=== PATIENT | female | born 1935 | race American Indian/Alaskan Native ===

== ENCOUNTER → 2018-07-06 | Outpatient (CLI) | payer MEDICARE, OTHER ==
[~2018-07-06] MED LIST: Artificial Tea1 EACH BOTHEYES; CALC.25 PO; CARV3.125 PO; CIPR500 PO; FURO40 PO; GLIM4 PO; INSULANPEN; Januvia50 MG PO; LISI20 PO; LOSA25 PO; MECL12.5 PO; METF500 PO; METO2.5 PO; NIFE90ER PO; Oxybutynin Chlor5 M1 PO; SITA100T2 PO; VITAMIN D32000 UNIT PO
== END ==
LOC: LAB SHORT 18:23 → LAB 18:23
DX: R35.1 Nocturia (principal)
CPT/HCPCS: 87077; 87086; 87186

== ENCOUNTER → 2019-04-12 | Outpatient (CLI) | payer MEDICARE, OTHER ==
[2019-04-13 14:01] LABS: C DIFFICILE BY DNA AMP Positive (Negative)
== END | disposition home or self-care (01) ==
LOC: LAB SHORT 09:58 → LAB 09:58
PROVIDERS: Internal Medicine Nephrology
DX: N18.4 Chronic kidney disease, stage 4 (severe) (principal); D63.1 Anemia in chronic kidney disease; E55.9 Vitamin D deficiency, unspecified; E78.00 Pure hypercholesterolemia, unspecified; R76.9 Abnormal immunological finding in serum, unspecified; R94.5 Abnormal results of liver function studies; R94.6 Abnormal results of thyroid function studies
CPT/HCPCS: 87324; 87493

== ENCOUNTER → 2020-02-20 | Outpatient (CLI) | payer MEDICARE, OTHER ==
[2020-02-20 11:54] LABS: Bun/Creatinine Ratio 33.6 (12.0-20.0); Calcium, Blood 9.7 mg/dL (8.5-10.1); Creatinine, Blood 3.75 mg/dL (0.40-1.00); Potassium, Blood 3.5 mmol/L (3.5-5.5)
[2020-02-20 11:56] LABS: Uric Acid, Blood 14.6 mg/dL (2.6-6.0)
== END | disposition home or self-care (01) ==
LOC: LAB SHORT 10:03 → LAB 10:03
PROVIDERS: Physician Assistant
DX: N18.3 Chronic kidney disease, stage 3 (moderate) (principal); D63.1 Anemia in chronic kidney disease
CPT/HCPCS: 80048; 84550

== ENCOUNTER → 2020-02-26 | Outpatient (CLI) | payer MEDICARE, OTHER ==
[2020-02-26 10:58] LABS: BASOPHILS ABSOLUTE AUTO 0.02 K/mm3 (0.00-0.23); BASOPHILS PERCENT AUTO 0 % (0-2); EOSINOPHILS ABSOLUTE AUTO 0.01 K/mm3 (0.00-0.68); EOSINOPHILS PERCENT AUTO 0 % (0-6); Hematocrit 42.5 % (33.0-51.0); IMMATURE GRAN ABSOLUTE AUTO 0.05 K/mm3 (0.00-0.10); IMMATURE GRAN PERCENT AUTO 0 % (0-1); LYMPHOCYTES PERCENT AUTO 16 % (21-46); MONOCYTES ABSOLUTE AUTO 1.02 K/mm3 (0.16-1.47); MONOCYTES PERCENT AUTO 9 % (4-13); Mean Corpuscular HGB 27.8 pg (26.0-34.0); Mean Corpuscular HGB Conc 32.9 g/dL (31.5-36.5); Mean Corpuscular Volume 85 fL (80-100); NEUTROPHILS PERCENT AUTO 75 % (41-73); Platelet Count 295 K/mm3 (150-400); RDW Coefficient Variation 13.3 % (11.7-14.2); RDW Standard Deviation 41.2 fL (35.1-46.3); Red Blood Cell Count 5.03 M/mm3 (3.80-5.20)
[2020-02-26 11:16] LABS: Alanine Aminotransfer (ALT/SGP 36 U/L (12-78); Albumin, Blood 3.7 g/dL (3.4-5.0); Albumin/Globulin Ratio 0.7 (0.8-1.8); Alk Phos 44 U/L (50-136); Anion Gap 6 mmol/L (6-16); Aspartate Aminotrans (AST/SGOT 23 U/L (12-37); Bilirubin, Direct 0.2 mg/dL (0.0-0.3); Bilirubin, Indirect 0.4 mg/dL (0.1-0.7); Bilirubin, Total 0.6 mg/dL (0.1-1.0); CO2, Blood 39 mmol/L (21-32); Calcium, Blood 10.1 mg/dL (8.5-10.1); Chloride, Blood 91 mmol/L (98-108); Creatinine, Blood 3.47 mg/dL (0.40-1.00); Globulin, Blood 5.1 g/dL (2.2-4.0); Glomerular Filtration Rate 13 (60-); Glucose, Blood 138 mg/dL (70-99); Phosphorus, Blood 5.1 mg/dL (2.5-4.9); Potassium, Blood 3.1 mmol/L (3.5-5.5); Sodium, Blood 136 mmol/L (136-145); Total Protein, Blood 8.8 g/dL (6.4-8.2); Uric Acid, Blood 17.7 mg/dL (2.6-6.0)
[2020-02-26 11:23] LABS: Blood Urea Nitrogen 155 mg/dL (8-24); Bun/Creatinine Ratio 44.7 (12.0-20.0)
== END | disposition home or self-care (01) ==
LOC: LAB SHORT 10:47 → LAB 10:47
PROVIDERS: Internal Medicine Nephrology
DX: Z79.01 Long term (current) use of anticoagulants (principal); Z51.81 Encounter for therapeutic drug level monitoring; N18.5 Chronic kidney disease, stage 5; N25.81 Secondary hyperparathyroidism of renal origin; E78.00 Pure hypercholesterolemia, unspecified; R76.9 Abnormal immunological finding in serum, unspecified; R94.5 Abnormal results of liver function studies; R94.6 Abnormal results of thyroid function studies
CPT/HCPCS: 80053; 82248; 84100; 84550; 85025

== ENCOUNTER → 2020-03-03 | Outpatient (CLI) | payer MEDICARE, OTHER ==
[~2020-03-03] MED LIST changes: +ALLO100 PO; +BASAGLAR K100 UNIT/1 SC; +FURO80 PO; -INSULANPEN; +INSULANPEN SC; +METO5 PO; +POTA10T PO; +Polyvinyl Alcoh15 ML BOTHEYES; +TRAM50 PO
[2020-03-03 19:47] LABS: BASOPHILS ABSOLUTE AUTO 0.02 K/mm3 (0.00-0.23); BASOPHILS PERCENT AUTO 0 % (0-2); EOSINOPHILS PERCENT AUTO 1 % (0-6); Hematocrit 45.8 % (33.0-51.0); Hemoglobin 14.8 g/dL (11.5-16.0); IMMATURE GRAN ABSOLUTE AUTO 0.05 K/mm3 (0.00-0.10); IMMATURE GRAN PERCENT AUTO 0 % (0-1); LYMPHOCYTES ABSOLUTE AUTO 3.01 K/mm3 (0.84-5.20); LYMPHOCYTES PERCENT AUTO 27 % (21-46); MONOCYTES ABSOLUTE AUTO 1.32 K/mm3 (0.16-1.47); MONOCYTES PERCENT AUTO 12 % (4-13); Mean Corpuscular HGB 27.3 pg (26.0-34.0); Mean Corpuscular HGB Conc 32.3 g/dL (31.5-36.5); Mean Corpuscular Volume 85 fL (80-100); Mean Platelet Volume 11.8 fL (9.1-12.4); NEUTROPHILS ABSOLUTE AUTO 6.83 K/mm3 (1.96-9.15); NEUTROPHILS PERCENT AUTO 60 % (41-73); Platelet Count 245 K/mm3 (150-400); RDW Coefficient Variation 13.6 % (11.7-14.2); RDW Standard Deviation 41.8 fL (35.1-46.3); Red Blood Cell Count 5.42 M/mm3 (3.80-5.20); White Blood Cell Count 11.33 K/mm3 (4.00-11.30)
[2020-03-03 20:19] LABS: Albumin, Blood 3.9 g/dL (3.4-5.0); Anion Gap 12 mmol/L (6-16); CO2, Blood 34 mmol/L (21-32); Calcium, Blood 10.7 mg/dL (8.5-10.1); Chloride, Blood 86 mmol/L (98-108); Creatinine, Blood 3.91 mg/dL (0.40-1.00); Glomerular Filtration Rate 12 (60-); Glucose, Blood 56 mg/dL (70-99); Phosphorus, Blood 4.2 mg/dL (2.5-4.9); Sodium, Blood 132 mmol/L (136-145)
[2020-03-03 20:27] LABS: Blood Urea Nitrogen 160 mg/dL (8-24); Bun/Creatinine Ratio 40.9 (12.0-20.0)
== END ==
LOC: LAB 16:10 → LAB SHORT 16:10
PROVIDERS: Internal Medicine Nephrology
DX: E11.22 Type 2 diabetes mellitus with diabetic chronic kidney disease (principal); N18.5 Chronic kidney disease, stage 5; D72.829 Elevated white blood cell count, unspecified
CPT/HCPCS: 80069; 83735; 85025

== ENCOUNTER → 2020-03-05 | Outpatient (CLI) | payer MEDICARE, OTHER ==
[2020-03-05 15:59] LABS: BASOPHILS ABSOLUTE AUTO 0.03 K/mm3 (0.00-0.23); BASOPHILS PERCENT AUTO 0 % (0-2); EOSINOPHILS ABSOLUTE AUTO 0.11 K/mm3 (0.00-0.68); EOSINOPHILS PERCENT AUTO 1 % (0-6); Hematocrit 43.7 % (33.0-51.0); Hemoglobin 14.2 g/dL (11.5-16.0); IMMATURE GRAN ABSOLUTE AUTO 0.05 K/mm3 (0.00-0.10); IMMATURE GRAN PERCENT AUTO 1 % (0-1); LYMPHOCYTES ABSOLUTE AUTO 2.95 K/mm3 (0.84-5.20); LYMPHOCYTES PERCENT AUTO 29 % (21-46); MONOCYTES ABSOLUTE AUTO 1.29 K/mm3 (0.16-1.47); MONOCYTES PERCENT AUTO 13 % (4-13); Mean Corpuscular HGB 27.6 pg (26.0-34.0); Mean Corpuscular HGB Conc 32.5 g/dL (31.5-36.5); Mean Corpuscular Volume 85 fL (80-100); Mean Platelet Volume 11.7 fL (9.1-12.4); NEUTROPHILS PERCENT AUTO 57 % (41-73); Platelet Count 209 K/mm3 (150-400); RDW Coefficient Variation 13.6 % (11.7-14.2); RDW Standard Deviation 41.8 fL (35.1-46.3); Red Blood Cell Count 5.14 M/mm3 (3.80-5.20); White Blood Cell Count 10.23 K/mm3 (4.00-11.30)
[2020-03-05 16:15] LABS: International Normalized Ratio 1.07; Prothrombin Time Results 11.4 Sec (9.7-11.5)
[2020-03-05 16:23] LABS: Bun/Creatinine Ratio 39.8 (12.0-20.0); Calcium, Blood 10.6 mg/dL (8.5-10.1); Creatinine, Blood 4.05 mg/dL (0.40-1.00); Potassium, Blood 3.5 mmol/L (3.5-5.5)
== END | disposition home or self-care (01) ==
LOC: LAB SHORT 14:56 → LAB 14:56
PROVIDERS: Radiology Diagnostic Radiology
DX: N18.6 End stage renal disease (principal)
CPT/HCPCS: 80048; 85025; 85610

== ENCOUNTER 2020-03-18 14:38 | Emergency (ER) | payer MEDICARE, OTHER ==
[~2020-03-18] VITALS: Ht 170.2 cm; Wt 81.7 kg
[~2020-03-18 14:38] MED LIST changes: +ABAT250V; +ACET500 PO; +MEGESTROL400 MG/10 PO; +MIRALAX17 GM PO; +Senna S Tablet1 EACH PO
[2020-03-18 15:37] LABS: Albumin, Blood 3.1 g/dL (3.4-5.0); Albumin/Globulin Ratio 0.7 (0.8-1.8); Bilirubin, Total 0.9 mg/dL (0.1-1.0); Bun/Creatinine Ratio 17.7 (12.0-20.0); Calcium, Blood 9.7 mg/dL (8.5-10.1); Creatinine, Blood 4.13 mg/dL (0.40-1.00); Globulin, Blood 4.3 g/dL (2.2-4.0); Potassium, Blood 3.9 mmol/L (3.5-5.5); Total Protein, Blood 7.4 g/dL (6.4-8.2)
[2020-03-18 17:10] LABS: BASOPHILS ABSOLUTE AUTO 0.02 K/mm3 (0.00-0.23); BASOPHILS PERCENT AUTO 0 % (0-2); EOSINOPHILS ABSOLUTE AUTO 0.15 K/mm3 (0.00-0.68); EOSINOPHILS PERCENT AUTO 2 % (0-6); Hemoglobin 13.3 g/dL (11.5-16.0); IMMATURE GRAN ABSOLUTE AUTO 0.04 K/mm3 (0.00-0.10); IMMATURE GRAN PERCENT AUTO 1 % (0-1); LYMPHOCYTES ABSOLUTE AUTO 2.37 K/mm3 (0.84-5.20); LYMPHOCYTES PERCENT AUTO 33 % (21-46); MONOCYTES ABSOLUTE AUTO 1.48 K/mm3 (0.16-1.47); MONOCYTES PERCENT AUTO 20 % (4-13); Mean Corpuscular HGB Conc 32.4 g/dL (31.5-36.5); Mean Corpuscular Volume 86 fL (80-100); Mean Platelet Volume 10.7 fL (9.1-12.4); NEUTROPHILS ABSOLUTE AUTO 3.18 K/mm3 (1.96-9.15); NEUTROPHILS PERCENT AUTO 44 % (41-73); Platelet Count 194 K/mm3 (150-400); RDW Coefficient Variation 14.6 % (11.7-14.2); RDW Standard Deviation 45.2 fL (35.1-46.3); Red Blood Cell Count 4.75 M/mm3 (3.80-5.20); White Blood Cell Count 7.24 K/mm3 (4.00-11.30)
== END 2020-03-18 18:38 | disposition home or self-care (01) ==
LOC: ER 14:38
PROVIDERS: Physician Assistant
DX: E11.649 Type 2 diabetes mellitus with hypoglycemia without coma (principal); R41.82 Altered mental status, unspecified; Z79.4 Long term (current) use of insulin; Z79.899 Other long term (current) drug therapy; Z87.891 Personal history of nicotine dependence
CPT/HCPCS: 80053; 82947; 85025; 99285

== ENCOUNTER 2020-03-22 13:14 | Inpatient (IN) | payer MEDICARE, OTHER ==
[~2020-03-22] VITALS: Ht 172.7 cm; Wt 88.8 kg
[2020-03-22] MEDS ORDERED: GABA100 PO (13:23)
[2020-03-22 13:38] LABS: Source, Urine Catheter
[2020-03-22 13:41] LABS: Blood, Urine 5+ (Neg); Glucose Qualitative, Urine Neg (Neg); Ketones, Urine 2+ (Neg); Leukocyte Esterase, Urine 3+ (Neg); Nitrite, Urine Neg (Neg); Protein, Urine 3+ (Neg); Urobilinogen, Urine 2+ (Normal)
[2020-03-22 13:44] LABS: Bilirubin, Urine 1+ (Neg)
[2020-03-22 13:45] LABS: BASOPHILS ABSOLUTE AUTO 0.03 K/mm3 (0.00-0.23); BASOPHILS PERCENT AUTO 0 % (0-2); EOSINOPHILS ABSOLUTE AUTO 0.11 K/mm3 (0.00-0.68); EOSINOPHILS PERCENT AUTO 1 % (0-6); Hematocrit 43.8 % (33.0-51.0); Hemoglobin 14.2 g/dL (11.5-16.0); IMMATURE GRAN ABSOLUTE AUTO 0.05 K/mm3 (0.00-0.10); IMMATURE GRAN PERCENT AUTO 1 % (0-1); LYMPHOCYTES ABSOLUTE AUTO 2.85 K/mm3 (0.84-5.20); LYMPHOCYTES PERCENT AUTO 37 % (21-46); MONOCYTES ABSOLUTE AUTO 1.59 K/mm3 (0.16-1.47); MONOCYTES PERCENT AUTO 21 % (4-13); Mean Corpuscular HGB 28.4 pg (26.0-34.0); Mean Corpuscular HGB Conc 32.4 g/dL (31.5-36.5); Mean Corpuscular Volume 88 fL (80-100); Mean Platelet Volume 10.1 fL (9.1-12.4); NEUTROPHILS PERCENT AUTO 40 % (41-73); Platelet Count 216 K/mm3 (150-400); RDW Coefficient Variation 15.3 % (11.7-14.2); RDW Standard Deviation 47.5 fL (35.1-46.3); White Blood Cell Count 7.73 K/mm3 (4.00-11.30)
[2020-03-22 13:55] LABS: Appearance, Urine Cloudy (Clear); Color, Urine Amber (P-Yellow)
[2020-03-22 13:57] LABS: Red Blood Cells, Urine 50-100 /hpf (0-2); White Blood Cells, Urine 50-100 /hpf (0-5)
[2020-03-22 13:58] LABS: Amorphous Heavy (0-Heavy); Bacteria Many /hpf; Squamous Epithelial Cells Mod /hpf (Few)
[2020-03-22 14:02] LABS: Albumin, Blood 3.4 g/dL (3.4-5.0); Albumin/Globulin Ratio 0.7 (0.8-1.8); Bilirubin, Total 0.7 mg/dL (0.1-1.0); Bun/Creatinine Ratio 9.3 (12.0-20.0); Creatinine, Blood 3.76 mg/dL (0.40-1.00); Globulin, Blood 4.8 g/dL (2.2-4.0); Potassium, Blood 4.3 mmol/L (3.5-5.5); Total Protein, Blood 8.2 g/dL (6.4-8.2)
--- NOTE | 2020-03-22 18:15 | NUR ---
PT ARRIVED TO PCU 3 FROM ER. JENSEN. PT LYING IN BED W/ HER EYES CLOSED. A&Ox3. UNAWARE OF YEAR OR DATE. SLOW TO RESPOND BUT ANSWERS MAJORITY OF QUESTIONS WITH AN APPROPRIATE RESPONSE. LUNG SOUNDS DIMINISHED IN BASES, CLEAR IN ALL OTHER PHILIPPE. DENIES SOB. HEART IS IN SINUS RHYTHMN AT A RATE OF 63. MINOR EDEMA NOTED IN LOWER EXTREMETIES. PT CANNOT RECALL LAST BM. DENIES ABD PN. BOWELS ACTIVE IN ALL FOUR QUADRANTS. PT REPORTS UNRINARY INCONTINENCE. PT HAS RED AREA ON BUTTOCK AND INNER L ANKLE. OINTMENT PLACED ON BUTTOCK. PT CURRENTLY SITTING UP IN BED EATING DINNER WATCHING TV. BED IN LOWEST POSITION, RAILS UP, AND CALL LIGHT W/IN REACH.
--- NOTE | 2020-03-22 18:20 | NUR ---
POLST: Call placed to [facility]. Pt does have an updated POLST form signed during her last admission to the hospital. Pt is DNR. Copy of POLST form placed in chart and sent to medical records to scan into [employer].
--- NOTE | 2020-03-22 22:43 | NUR ---
CARE ASSUMED REPORT RECEIVED, CARE ASSUMED AT 1900 FROM BRYSON PHAN. PT ASLEEP IN BED, AROUSES EASILY WITH VERBAL STIMULATION. ORIENTED TO SELF ONLY. FORGETFUL. VITALS STABLE. ABLE TO TAKE ORAL MEDICATIONS WITHOUT DIFFICULTY. DENIES PAIN/DISCOMFORT. SEE ASSESSMENT. BED ALARM IN PLACE FOR SAFETY. CALL LIGHT IN REACH.
[2020-03-23 03:51] LABS: BASOPHILS ABSOLUTE AUTO 0.01 K/mm3 (0.00-0.23); BASOPHILS PERCENT AUTO 0 % (0-2); EOSINOPHILS ABSOLUTE AUTO 0.15 K/mm3 (0.00-0.68); EOSINOPHILS PERCENT AUTO 2 % (0-6); Hematocrit 40.5 % (33.0-51.0); Hemoglobin 12.6 g/dL (11.5-16.0); IMMATURE GRAN ABSOLUTE AUTO 0.04 K/mm3 (0.00-0.10); IMMATURE GRAN PERCENT AUTO 1 % (0-1); LYMPHOCYTES ABSOLUTE AUTO 2.52 K/mm3 (0.84-5.20); LYMPHOCYTES PERCENT AUTO 35 % (21-46); MONOCYTES PERCENT AUTO 22 % (4-13); Mean Corpuscular HGB 27.2 pg (26.0-34.0); Mean Corpuscular HGB Conc 31.1 g/dL (31.5-36.5); Mean Corpuscular Volume 87 fL (80-100); Mean Platelet Volume 9.9 fL (9.1-12.4); NEUTROPHILS ABSOLUTE AUTO 2.86 K/mm3 (1.96-9.15); NEUTROPHILS PERCENT AUTO 40 % (41-73); Platelet Count 197 K/mm3 (150-400); RDW Coefficient Variation 15.2 % (11.7-14.2); RDW Standard Deviation 47.7 fL (35.1-46.3); Red Blood Cell Count 4.64 M/mm3 (3.80-5.20); White Blood Cell Count 7.18 K/mm3 (4.00-11.30)
[2020-03-23 04:13] LABS: Albumin, Blood 2.8 g/dL (3.4-5.0); Albumin/Globulin Ratio 0.7 (0.8-1.8); Bilirubin, Total 0.6 mg/dL (0.1-1.0); Bun/Creatinine Ratio 10.4 (12.0-20.0); Calcium, Blood 9.6 mg/dL (8.5-10.1); Creatinine, Blood 3.75 mg/dL (0.40-1.00); Magnesium, Blood 2.3 mg/dL (1.6-2.4); Phosphorus, Blood 3.5 mg/dL (2.5-4.9); Potassium, Blood 3.7 mmol/L (3.5-5.5); Total Protein, Blood 6.8 g/dL (6.4-8.2)
--- NOTE | 2020-03-23 06:30 | NUR ---
SUMMARY PT HAS CONTINUED TO BE ORIENTED TO SELF ONLY. PT HAS SLEPT WELL THROUGHOUT NIGHT, BUT HAS BEEN INCREASINGLY EASIER TO WAKE UP. PT MORE TALKATIVE NIGHT PROGRESSES. ABLE TO EXPRESS SIMPLE NEEDS SUCH "I'M COLD." PT DENIES PAIN THROUGHOUT SHIFT. VITALS STABLE. INCONTINENT OF BOWEL AND URINE, ATTENDS IN PLACE. BLADDER SCAN PER DR. RAMOS, 150 IN BLADDER. PT ABLE TO ASSIST WITH TURNS BUT STILL REQUIRES TWO PERSON ASSIST. OTHERWISE, NO ACUTE CHANGES.
--- NOTE | 2020-03-23 07:40 | NUR ---
pt sleeping wakes breifly but falls back to sleep
--- NOTE | 2020-03-23 08:30 | NUR ---
PT EATING BREAKFAST
--- NOTE | 2020-03-23 09:01 | NUR ---
PT TRANSPORTED VIA BED TO DIALYSIS
--- NOTE | 2020-03-23 11:23 | NUR ---
PT BACK FROM DIALYSIS HER [facility] CALLED EARLIER REQ SHE GO TO SNF PER DR RACHEL FLORES DUE TO FREQ ADMISSION TO ER WITH HER NEW DIALYSIS DX PT HAS NO PREF
--- NOTE | 2020-03-23 12:05 | NUR ---
DR RAMOS BY TO SEE PT PT STATED HER FEET WERE HURTING REMOVED HEEL PROTECTORS AND GAVE HER PO TYLENOL AND FLOATED HER HEELS INSTEAD AWAITING A BED ON MED FLOOR
--- NOTE | 2020-03-23 12:51 | NUR ---
PT ARRIVED TO HER ROOM FROM PCU. SHE IS RESTING IN BED WITH HER EYES CLOSED. SHE WAS ORIENTED TO HER ROOM AND STAFF AND SMILED HER RESPONSE. SHE HAS HER CALL LIGHT IN REACH AND BED ALARM ON FOR SAFETY.
--- NOTE | 2020-03-23 15:39 | NUR ---
SHIFT SUMMARY PT IS ALERT BUT NOT ORIENTED. WHEN ASKED WHEN HER BIRTHDAY IS SHE REPORTS THE WRONG MONTH. PT IS COMPLIANT WITH HER CARE AND TAKES HER MEDS ORDERED. SHE WAS ABLE TO WORK WITH THERPAY FOR A SHORT PERIOD OF TIME THIS AFTERNOON AND WENT BACK TO BED. SHE IS RESTING IN BED WITH HER CALL LIGHT IN REACH AND BED ALARM ON FOR SAFETY.
--- NOTE | 2020-03-24 04:42 | NUR ---
SHIFT SUMMARY NO ACUTE CHANGES TO REPORT THIS SHIFT. PT PLESANT AND COOPERATIVE AND MUCH MORE A/O THAN PREVIOUS SHIFTS. SHE IS A/O TO YEAR, PRESIDENT, FAMILY, AND SEEMS TO HAVE SOME AWARENESS THAT SHE IS IN THE HOSPITAL. SHE WAS NOT ABLE TO TELL ME THE MONTH. HOWEVER, PT IS EASY TO REDIRECT. SHE HAS NOT TRIED TO CLIMB OUT OF BED. SHE HAS DENIED NEEDS WHEN ASKED AND TOOK HER MEDICATIONS WITHOUT DIFFICULTY. VITALS STABLE. BED IN LOWEST POSITION, CALL LIGHT WITHIN REACH. WILL CONTINUE TO MONITOR AND REPORT TO ONCOMING RN.
[2020-03-24 04:53] LABS: Hematocrit 39.8 % (33.0-51.0); Hemoglobin 12.9 g/dL (11.5-16.0)
[2020-03-24 05:10] LABS: Anion Gap 8 mmol/L (6-16); Blood Urea Nitrogen 32 mg/dL (8-24); Bun/Creatinine Ratio 10.2 (12.0-20.0); CO2, Blood 29 mmol/L (21-32); Calcium, Blood 9.4 mg/dL (8.5-10.1); Chloride, Blood 96 mmol/L (98-108); Creatinine, Blood 3.14 mg/dL (0.40-1.00); Glomerular Filtration Rate 15 (60-); Glucose, Blood 140 mg/dL (70-99); Magnesium, Blood 2.2 mg/dL (1.6-2.4); Phosphorus, Blood 3.2 mg/dL (2.5-4.9); Sodium, Blood 133 mmol/L (136-145)
--- NOTE | 2020-03-24 06:16 | NUR ---
DR. RAMOS IN TO SEE PT THIS AM. NEW [place] ORDER NOTED.
--- NOTE | 2020-03-24 07:34 | NUR ---
ASSUMED CARE OF PT- BEDSIDE REPORT COMPLETED WITH NIGHT BRYSON KELLEY. PT ALERT AND ORIENTED X3 PER REPORT. PT ALEEPING AT THE TIME OF REPORT RESP E/U, NO S&S OF DISTRESS OR PAIN. ABX RUNNING AT CHANGE OF SHIFT OTHERWISE IV IS SL. PT 2PA WITH ALL TRANSFERS AWATITING PLACEMENT; IS ON DIALYSIS.
[2020-03-24] MEDS ORDERED: VISBIOME 112.51 EACH PO (11:47)
--- NOTE | 2020-03-24 16:06 | NUR ---
SHIFT SUMMARY- PT WAS GIVEN WRITTEN DISCHARGE INSTRUCTIONS. IV REMOVED PRIOR TO DISCHARGE. CALLED [facility] AND SPOKE TO MUNIRA THEY ARE AWARE OF THE PT DISCHARGE. PRINTED DC INSTRUCTIONS WERE GIVEN TO THE INSPECTOR AUTOMATIC TYPEWRITER TO GIVE TO THE LOGISTICS MANAGEMENT SPECIALIST AT [facility]. WOUND CARE PERFORMED PRIOR TO DISCHARGE, CLEANED AND DRIED AREA AND PLACED A MEPILEX OVER HER COCCYX. PT WAS A 2P MOD ASSIST TO THE .
== END 2020-03-24 14:42 | disposition home or self-care (01) | DRG 91 ==
LOC: ER 13:14 → PCU 13:15 → MEDS 13:15 → PCU 13:15 → MEDS 03-23 12:45 → ENPENDDIS 03-24 09:31 → MEDS 03-24 14:42
PROVIDERS: Emergency Medicine; Internal Medicine Nephrology; ADMIT Hospitalist
PROC: 5A1D70Z Performance of Urinary Filtration, Intermittent, Less than 6 Hours Per Day (ICD-10-PCS; principal; 2020-03-23)
DX: G92 Toxic encephalopathy (principal); N18.6 End stage renal disease; N39.0 Urinary tract infection, site not specified; N25.81 Secondary hyperparathyroidism of renal origin; E87.1 Hypo-osmolality and hyponatremia; Z99.2 Dependence on renal dialysis; E11.22 Type 2 diabetes mellitus with diabetic chronic kidney disease; I12.9 Hypertensive chronic kidney disease with stage 1 through stage 4 chronic kidney disease, or unspecified chronic kidney disease; Z87.891 Personal history of nicotine dependence; M19.90 Unspecified osteoarthritis, unspecified site; E88.09 Other disorders of plasma-protein metabolism, not elsewhere classified; T42.6X5A Adverse effect of other antiepileptic and sedative-hypnotic drugs, initial encounter; Y92.9 Unspecified place or not applicable
CPT/HCPCS: 36415; 71045; 80053; 80069; 81001; 82947; 83735; 84100; 85014; 85018; 85025; 87086; 93005; 93010; 97112; 97162; 99285-25; A9270; J0696; J1644; J7040; J7050; P9612

== ENCOUNTER → 2020-04-19 | Outpatient (CLI) | payer MEDICARE, OTHER ==
[~2020-04-19] MED LIST changes: +GABA100 PO; +VISBIOME 112.51 EACH PO
[2020-04-19 09:40] LABS: CHOL/HDL RATIO 5.7; Cholesterol 164 mg/dL (50-200); HDL Cholesterol 29 mg/dL (>39); LDL/HDL RATIO 3.7; Low Density Lipoprotein Chol 107 mg/dL (0-110); Triglycerides 138 mg/dL (30-160); Very Low Density Lipoprot Chol 27 mg/dL (6-32)
== END | disposition home or self-care (01) ==
LOC: LAB SHORT 08:32 → LAB 08:32
PROVIDERS: Physician Assistant
DX: Z13.6 Encounter for screening for cardiovascular disorders (principal); E11.9 Type 2 diabetes mellitus without complications
CPT/HCPCS: 80061; 82043

== ENCOUNTER → 2020-11-14 | Outpatient (CLI) | payer MEDICARE, OTHER ==
[~2020-11-14] MED LIST changes: +MIDO5 PO; +TRESIBA FL100 UNIT/2 SC; +Vitamin B-121000 MCG PO
[2020-11-14 17:22] LABS: Albumin, Blood 3.3 g/dL (3.4-5.0); Anion Gap 8 mmol/L (6-16); Blood Urea Nitrogen 57 mg/dL (8-24); Bun/Creatinine Ratio 27.9 (12.0-20.0); CO2, Blood 27 mmol/L (21-32); Calcium, Blood 9.5 mg/dL (8.5-10.1); Chloride, Blood 104 mmol/L (98-108); Creatinine, Blood 2.04 mg/dL (0.40-1.00); Glomerular Filtration Rate 25 (60-); Glucose, Blood 90 mg/dL (70-99); Phosphorus, Blood 3.8 mg/dL (2.5-4.9); Potassium, Blood 3.8 mmol/L (3.5-5.5); Sodium, Blood 139 mmol/L (136-145)
== END | disposition home or self-care (01) ==
LOC: LAB 16:00 → LAB SHORT 16:00
PROVIDERS: Internal Medicine Nephrology
DX: N18.6 End stage renal disease (principal)
CPT/HCPCS: 80069

== ENCOUNTER → 2020-11-21 | Outpatient (CLI) | payer MEDICARE, OTHER ==
[2020-11-21 12:51] LABS: Albumin/Globulin Ratio 0.8 (0.8-1.8); Bilirubin, Total 0.6 mg/dL (0.1-1.0); Bun/Creatinine Ratio 29.1 (12.0-20.0); Calcium, Blood 9.1 mg/dL (8.5-10.1); Creatinine, Blood 1.99 mg/dL (0.40-1.00); Globulin, Blood 3.6 g/dL (2.2-4.0); Phosphorus, Blood 3.5 mg/dL (2.5-4.9); Potassium, Blood 4.5 mmol/L (3.5-5.5); Total Protein, Blood 6.6 g/dL (6.4-8.2)
== END ==
LOC: LAB 11:18 → LAB SHORT 11:18
PROVIDERS: Internal Medicine Nephrology
DX: N18.6 End stage renal disease (principal)
CPT/HCPCS: 80053; 84100

== ENCOUNTER 2021-01-04 11:49 | Emergency (ER) | payer MEDICARE, OTHER ==
[~2021-01-04] VITALS: Ht 175.3 cm; Wt 90.7 kg
[~2021-01-04 11:49] MED LIST changes: -MIDO5 PO; -TRESIBA FL100 UNIT/2 SC; -Vitamin B-121000 MCG PO
[2021-01-04] MEDS ORDERED: ALLO100 PO (12:19)
[2021-01-04] MEDS ORDERED: FURO80 PO (12:19)
[2021-01-04] MEDS ORDERED: POTA10T PO (12:20)
[2021-01-04] MEDS ORDERED: METO5 PO (12:20)
[2021-01-04] MEDS ORDERED: MIDO5 PO (12:20)
[2021-01-04] MEDS ORDERED: TRESIBA FL100 UNIT/2 SC ×2 (12:21→12:22)
[2021-01-04] MEDS ORDERED: Vitamin B-121000 MCG PO (12:22)
[2021-01-04] MEDS ORDERED: TRAM50 PO (12:23)
== END 2021-01-04 14:18 | disposition home or self-care (01) ==
LOC: ER 11:49
DX: E11.649 Type 2 diabetes mellitus with hypoglycemia without coma (principal); I10 Essential (primary) hypertension; Z79.4 Long term (current) use of insulin; Z87.891 Personal history of nicotine dependence
CPT/HCPCS: 93005; 93010; 99285-25

== ENCOUNTER → 2021-08-06 | Outpatient (CLI) | payer MEDICARE, OTHER ==
[~2021-08-06] MED LIST changes: +MIDO5 PO; +TRESIBA FL100 UNIT/2 SC; +Vitamin B-121000 MCG PO
== END | disposition home or self-care (01) ==
LOC: LAB SHORT 10:15
DX: E11.649 Type 2 diabetes mellitus with hypoglycemia without coma (principal); E11.622 Type 2 diabetes mellitus with other skin ulcer; L97.329 Non-pressure chronic ulcer of left ankle with unspecified severity; L98.491 Non-pressure chronic ulcer of skin of other sites limited to breakdown of skin; S80.812S Abrasion, left lower leg, sequela; L08.9 Local infection of the skin and subcutaneous tissue, unspecified; Z79.899 Other long term (current) drug therapy
CPT/HCPCS: 87070; 87077; 87186; 87205

== ENCOUNTER 2021-09-22 12:41 | Day surgery (SDC) | payer MEDICARE, OTHER ==
[~2021-09-22] VITALS: Ht 167.6 cm; Wt 97.0 kg
[~2021-09-22 12:41] MED LIST changes: +ACIDOPHILUS1 EAC3 PO; +CINA30 PO
--- NOTE | 2021-09-22 14:10 | NUR ---
PT TO RECOVERY ROOM POST PROCEDURE. PT WITH POSITIVE SWELLING TO L GROIN, MANUAL PRESSURE APPLIED.
--- NOTE | 2021-09-22 14:30 | NUR ---
PT'S L GROIN STABLE POST PROCEDURE. PT DROWSY, BUT CONVERSING APPROPRIATELY; REPORTS MIN DISCOMFORT L GROIN, /, DENIES NEED FOR PAIN MEDICATION. MONITOR SR 70'S, B/P 127/58, AFEBRILE, SPO2 98% RA. L GROIN NO SWELLING, SOFT, JAXSON AND TEGADERM DRSG INTACT, PULSES 2+ X 2. R GROIN NO SWELLING/HEMATOMA, JAXSON AND TEGADERM DRSG INTACT; PULSES 1+ X 2. L PEDAL ACCESS NO SWELLING/HEMATOMA, JAXSON AND TEGADERM DRSG INTACT. PT'S AT BEDSIDE, DR MOSES INTO DISCUSS PROCEDURE RESULTS WITH PT. DR MOSES NOTIFIED OF L GROIN BLEEDING POST PROCEDURE.
[2021-09-22] MEDS ORDERED: CLOBET30L TOP (15:48)
[2021-09-22] MEDS ORDERED: INSULIN AS100 UNIT/8 SC (15:52)
[2021-09-22] MEDS ORDERED: SILVADENE20 G3 SC (15:55)
[2021-09-22] MEDS ORDERED: ACET500 PO (15:58)
--- NOTE | 2021-09-22 17:35 | NUR ---
PT TO RECOVERY ROOM POST PROCEDURE. PT AWAKE AND CONVERSING APPROPRIATELY; DENIES PAIN. MONITOR SR 60'S, B/P 167/74, AFEBRILE, SPO2 95% RA. R CHEST PERMCATH SITE NO SWELLING/HEMATOMA, GAUZE AND TAPE DRSG INTACT.
--- NOTE | 2021-09-22 18:10 | NUR ---
PT SAT UP ON THE EDGE OF THE BED TO EAT DINNER.
--- NOTE | 2021-09-22 18:40 | NUR ---
PT'S PERMCATH SITE OOZING BLOODY FLUID, MANUAL PRESSURE APPLIED.
--- NOTE | 2021-09-22 18:50 | NUR ---
DR MOSES HERE TO EVALUATE SITE, INSTRUCTED TO HOLD PRESSURE AND APPLY PRESSURE CHULA. PT'S ASSISTED LIVING FACILITY UPDATED.
--- NOTE | 2021-09-22 19:30 | NUR ---
PT'S SITE CONTINUES TO OOZE DESPITE MANUAL PRESSURE AND PRESSURE DRSG. DR MOSES NOTIFIED, ORDERS RECEIVED TO KEEP PT OVERNIGHT; NSG MENTAL HYGIENE CONSULTANT NOTIFIED.
--- NOTE | 2021-09-22 19:45 | NUR ---
PT'S ASSISTED LIVING FACILITY NOTIFIED PT WOULD BE STAYING OVERNIGHT IN THE HOSPITAL.
--- NOTE | 2021-09-22 20:30 | NUR ---
DR MOSES NOTIFIED OF PT'S CONTINUED OOZE, ORDERS RECEIVED TO PLACE NEW PRESSURE DRS PRIOR TO TRANSFERRING TO FLOOR.
--- NOTE | 2021-09-22 20:45 | NUR ---
NEW PRESSURE DRSG APPLIED AND PT TRANSFERRED TO RM [id number]. REPORT GIVEN TO BRYSON NICHOLS; ALL QUESTIONS ANSWERED.
--- NOTE | 2021-09-23 03:55 | NUR ---
SHIFT SUMMARY POD1 PERMA CATH REPLACEMENT. VITALS STABLE. PT OBS STATUS DUE TO BLEEDING POST OP, SINCE ARRIVING TO THE FLOOR MINIMAL BLEEDING, PRESSURE DRESSING REMOVED APPROX 2 HOURS AFTER ARRIVING. TOLERATING PO INTAKE. NO PAIN REPORTED. HOME MEDS TO BE STARTED THIS AM. WILL REPORT TO ONCOMING RN.
--- NOTE | 2021-09-23 15:04 | NUR ---
DISCHARGE: PATIENT WILL BE LEAVING AT 1600 VIA WC TRANSORT TO BE TAKEN TO DIALYSIS APPT THEN WILL GO FROM THERE BACK TO [facility] ASSISTED LIVING. TALKED WITH MUNIRA AT [facility] SHE IS AWARE OF ARRANGEMENT. FAXED DC PAPERWORK TO [facility] PER HER REQUEST. IV REMOVED AT THIS TIME.
== END 2021-09-23 17:08 | disposition home or self-care (01) ==
LOC: MHTC 12:41 → SURS 12:41 → MHTC 13:00 → SURS 20:53 → MHTC 09-23 17:08
DX: N18.6 End stage renal disease (principal)
CPT/HCPCS: 82947; 99152; A9270; C1750; C1769; J1644; J1815; J2250; J3010; J7042; J7050; Q9967

== ENCOUNTER 2022-06-24 18:33 | Emergency (ER) | payer MEDICARE, OTHER ==
[~2022-06-24] VITALS: Ht 177.8 cm; Wt 136.1 kg
[~2022-06-24 18:33] MED LIST changes: +CEPH500 PO; +CLOBET30L TOP; +INSULIN AS100 UNIT/8 SC; +SILVADENE20 G3 SC
[2022-06-24 19:22] LABS: BASOPHILS ABSOLUTE AUTO 0.02 K/mm3 (0.00-0.23); BASOPHILS PERCENT AUTO 0 % (0-2); EOSINOPHILS ABSOLUTE AUTO 0.25 K/mm3 (0.00-0.68); EOSINOPHILS PERCENT AUTO 3 % (0-6); Hematocrit 34.5 % (33.0-51.0); Hemoglobin 11.3 g/dL (11.5-16.0); IMMATURE GRAN ABSOLUTE AUTO 0.04 K/mm3 (0.00-0.10); IMMATURE GRAN PERCENT AUTO 1 % (0-1); LYMPHOCYTES ABSOLUTE AUTO 1.88 K/mm3 (0.84-5.20); LYMPHOCYTES PERCENT AUTO 23 % (21-46); MONOCYTES ABSOLUTE AUTO 1.25 K/mm3 (0.16-1.47); MONOCYTES PERCENT AUTO 15 % (4-13); Mean Corpuscular HGB 29.7 pg (26.0-34.0); Mean Corpuscular HGB Conc 32.8 g/dL (31.5-36.5); Mean Corpuscular Volume 91 fL (80-100); Mean Platelet Volume 9.9 fL (9.1-12.4); NEUTROPHILS ABSOLUTE AUTO 4.75 K/mm3 (1.96-9.15); NEUTROPHILS PERCENT AUTO 58 % (41-73); Platelet Count 195 K/mm3 (150-400); RDW Coefficient Variation 13.8 % (11.7-14.2); Red Blood Cell Count 3.81 M/mm3 (3.80-5.20); White Blood Cell Count 8.19 K/mm3 (4.00-11.30)
[2022-06-24 19:36] LABS: Calcium, Blood 8.5 mg/dL (8.5-10.1); Creatinine, Blood 2.76 mg/dL (0.40-1.00); Magnesium, Blood 2.4 mg/dL (1.6-2.4); Phosphorus, Blood 2.9 mg/dL (2.5-4.9); Potassium, Blood 3.7 mmol/L (3.5-5.5)
[2022-06-24] MEDS ORDERED: ACIDOPHILUS1 EAC3 PO (20:18)
== END 2022-06-25 02:09 | disposition home or self-care (01) ==
LOC: ER 18:33
PROVIDERS: Emergency Medicine
DX: S09.90XA Unspecified injury of head, initial encounter (principal); I62.00 Nontraumatic subdural hemorrhage, unspecified; I12.0 Hypertensive chronic kidney disease with stage 5 chronic kidney disease or end stage renal disease; E11.22 Type 2 diabetes mellitus with diabetic chronic kidney disease; N18.6 End stage renal disease; W19.XXXA Unspecified fall, initial encounter; Z88.8 Allergy status to other drugs, medicaments and biological substances; Z79.899 Other long term (current) drug therapy; Z79.4 Long term (current) use of insulin
CPT/HCPCS: 36415; 70450; 72125; 73030; 80048; 83735; 84100; 85025; 99284-25